=== PATIENT | male | born 1960 | race Caucasian/White ===

== ENCOUNTER 2018-02-26 09:19 | Emergency (ER) | payer MEDICAID ==
[~2018-02-26] VITALS: Ht 177.8 cm; Wt 90.9 kg
[2018-02-26] MEDS ORDERED: LISI-660 PO (09:30)
[2018-02-26] MEDS ORDERED: METF-960 PO (09:30)
[2018-02-26] MEDS ORDERED: TAMS0.4C32 PO (09:30)
[2018-02-26] MEDS ORDERED: CIP250 PO (09:30)
[2018-02-26 09:35] LABS: GLUCOSE,POINT OF CARE 111 MG/DL (70-110)
[2018-02-26 10:50] LABS: APPEARANCE,URINE CLEAR (CLEAR); BILIRUBIN,URINE NEGATIVE (NEGATIVE); GLUCOSE, URINE (UA) NEGATIVE (NEGATIVE); KETONES,URINE NEGATIVE (NEGATIVE); LEUKOCYTE ESTERASE ,URINE NEGATIVE (NEGATIVE); NITRATE,URINE NEGATIVE (NEGATIVE); OCCULT BLOOD,URINE NEGATIVE (NEGATIVE); PROTEIN,URINE NEGATIVE (NEGATIVE); UROBILINOGEN,URINE 0.2 mg/dL (<=1.0)
[2018-02-26 12:29] VITALS: BP 142/97
== END 2018-02-26 12:33 | disposition home or self-care (01) ==
LOC: EMS 09:20
DX: R30.0 Dysuria (principal); I10 Essential (primary) hypertension; E11.9 Type 2 diabetes mellitus without complications

== ENCOUNTER 2018-04-27 21:57 | Emergency (ER) | payer MEDICAID ==
[~2018-04-27] VITALS: Ht 175.3 cm; Wt 111.0 kg
[~2018-04-27 21:57] MED LIST: CIP250 PO; LISI-660 PO; METF-960 PO; TAMS0.4C32 PO
[2018-04-27] MEDS ORDERED: ASPI-556 PO (22:09)
[2018-04-27] MEDS ORDERED: METF-960 PO (22:09)
[2018-04-27] MEDS ORDERED: LISI-661 PO (22:09)
[2018-04-27] MEDS ORDERED: ATOR40TA28 PO (22:09)
[2018-04-27 22:24] LABS: GLUCOSE,POINT OF CARE 149 MG/DL (70-110)
[2018-04-27 23:32] VITALS: BP 148/80
[2018-04-27] MEDS ORDERED: HYDROCODONE/ACETAMINOPHEN 5-325 MG TABLET PO ONE (23:45)
== END 2018-04-27 23:46 | disposition home or self-care (01) ==
LOC: EMS 21:58
DX: S22.42XA Multiple fractures of ribs, left side, initial encounter for closed fracture (principal); E11.9 Type 2 diabetes mellitus without complications; I10 Essential (primary) hypertension; Z79.82 Long term (current) use of aspirin; Z79.899 Other long term (current) drug therapy; Z79.84 Long term (current) use of oral hypoglycemic drugs; X58.XXXA Exposure to other specified factors, initial encounter; Y93.89 Activity, other specified; Y92.89 Other specified places as the place of occurrence of the external cause; Y99.8 Other external cause status
CPT/HCPCS: 71101

== ENCOUNTER 2018-05-18 18:01 | Emergency (ER) | payer MEDICAID ==
[~2018-05-18] VITALS: Ht 180.3 cm; Wt 100.0 kg
[~2018-05-18 18:01] MED LIST changes: +ASPI-556 PO; +ATOR40TA28 PO; -CIP250 PO; -LISI-660 PO; +LISI-661 PO; -TAMS0.4C32 PO
[2018-05-18 18:14] VITALS: BP 140/81
== END 2018-05-18 21:13 | disposition left against medical advice (07) ==
LOC: EMS 18:02
DX: R33.9 Retention of urine, unspecified (principal); R39.89 Other symptoms and signs involving the genitourinary system; E11.9 Type 2 diabetes mellitus without complications; I10 Essential (primary) hypertension; Z53.21 Procedure and treatment not carried out due to patient leaving prior to being seen by health care provider

== ENCOUNTER 2018-06-14 01:50 | Emergency (ER) | payer MEDICAID ==
[~2018-06-14] VITALS: Ht 180.3 cm; Wt 109.1 kg
[2018-06-14 02:14] LABS: GLUCOSE,POINT OF CARE 147 MG/DL (70-110)
[2018-06-14 04:36] VITALS: BP 154/72
[2018-06-14] MEDS ORDERED: KETOROLAC TROMETHAMINE 60 MG/2 ML VIAL IM ONE (05:15)
[2018-06-14] MEDS ORDERED: ONDANSETRON HCL 4 MG TABLET PO ONE (05:15)
== END 2018-06-14 05:31 | disposition home or self-care (01) ==
LOC: EMS 01:53
DX: S06.0X1A Concussion with loss of consciousness of 30 minutes or less, initial encounter (principal); S00.01XA Abrasion of scalp, initial encounter; E11.9 Type 2 diabetes mellitus without complications; I10 Essential (primary) hypertension; Z79.82 Long term (current) use of aspirin; Z79.899 Other long term (current) drug therapy; Z79.84 Long term (current) use of oral hypoglycemic drugs; W01.0XXA Fall on same level from slipping, tripping and stumbling without subsequent striking against object, initial encounter; Y93.89 Activity, other specified; Y92.89 Other specified places as the place of occurrence of the external cause; Y99.8 Other external cause status
CPT/HCPCS: 70450; 82962; 96372; 99284; J1885; Q0162